=== PATIENT | female | born 1980 | race Caucasian/White ===

== ENCOUNTER 2017-05-13 14:26 | Inpatient (IN) | payer OTHER ==
[~2017-05-13] VITALS: Ht 154.9 cm; Wt 69.9 kg
[~2017-05-13 14:26] MED LIST: AMBIEN5 MG PO; AMITRIPTYLINE H25 M2 PO; AMITRIPTYLINE H75 M1 PO; AMITRIPTYLINE100 MG PO; CALCIUM; CIPROFLOXACIN500 M1 PO; ESTRACE0.5 MG; ESTROGEN; FLAGYL500 MG PO; FLEXERIL PO; HYDROCHLOROTH12.5 MG; HYDROCODONE-AP1 EAC6 PO; HYDROXYZINE HCL25 M2 PO; IBUPROFEN 800800 M1 PO; LEXAPRO 10 MG T10 M1; LISINOPRIL5 MG PO; MEDROLDOSEPACK PO; MENEST2.5 MG PO; MOBIC15 MG PO; NABUMETONE 750750 M1 PO; NEURONTIN300 MG PO; NEURONTIN600 MG PO; NORCO 5-325 TA1 EACH PO; NORVASC; ONDANSETRON HCL4 M2 PO; PERCOCET 5-3251 EACH PO; PHENERGAN 25 MG25 MG PO; PHENERGAN50 MG RC; PRINIVIL10 MG PO; PROMETHAZINE12.5 M1 PO; PROZAC40 MG; STOOL SOFTENER50 MG PO; SYNTHROID112 MCG PO; TRAMADOL 50 MG50 MG PO; VENLAFAXIN75 MG/1 T2 PO; WELLBUTRIN 75 M75 M1; XANAX 0.5 MG0.5 MG PO; ZOFRAN ODT4 MG PO; ZOFRAN4 MG PO
[2017-05-13 14:35] VITALS: BP 167/119
[2017-05-13] MEDS ORDERED: SYNTHROID100 MCG PO (14:40)
[2017-05-13] MEDS ORDERED: NEURONTIN600 MG PO (14:40)
[2017-05-13] MEDS ORDERED: AMITRIPTYLINE100 MG PO (14:40)
[2017-05-13] MEDS ORDERED: ZOFRAN ODT4 MG PO (14:40)
[2017-05-13 14:57] LABS: ABSOLUTE LYMPHOCYTES 1.1 thou/uL (0.8-5.3); ABSOLUTE MONOCYTES 0.4 thou/uL (0.0-1.2); ABSOLUTE NEUTROPHILS 3.1 thou/uL (1.6-8.1); BASOPHILS 0.4 %; EOSINOPHILS 0.9 %; HEMOGLOBIN 12.2 gm/dL (12.0-15.0); LYMPHOCYTES 24.5 %; MCH 28.3 pg (26.0-34.0); MCHC 33.1 g/dL (28.0-37.0); MCV 85.5 fL (80.0-100.0); MPV 7.7 fl. (7.2-11.1); NUCLEATED RBCS 0 /100WBC; PLATELET COUNT* 328 thou/uL (150-400); POLYS 66.2 %; RBC 4.32 mil/uL (4.20-5.00); RDW-CV 14.4 % (10.5-14.5); WBC 4.7 thou/uL (4.0-11.0)
[2017-05-13 15:04] LABS: ANION GAP 7 mmol/L (7-16); BUN 8 mg/dL (7-18); CALCIUM 8.7 mg/dL (8.5-10.1); CHLORIDE 108 mmol/L (98-107); CO2 27 mmol/L (21-32); CREATININE 0.8 mg/dL (0.6-1.3); GLUCOSE 96 mg/dL (70-99); SODIUM 142 mmol/L (136-145)
[2017-05-13 15:05] LABS: APTT 26.1 Seconds (25.0-31.3); PROTIME 9.4 Seconds (9.20-11.50)
[2017-05-13 15:15] LABS: ACETAMINOPHEN < 2 ug/mL (10-30); ALCOHOL < 10 mg/dL (<10)
[2017-05-13 15:16] LABS: URINE BILIRUBIN NEGATIVE (Negative); URINE BLOOD TRACE (Negative); URINE CLARITY CLEAR; URINE COLOR STRAW; URINE GLUCOSE-RANDOM NEGATIVE (Negative); URINE KETONES NEGATIVE (Negative); URINE LEUKOCYTES-REFLEX 1+ (Negative); URINE NITRITE-REFLEX NEGATIVE (Negative); URINE PROTEIN NEGATIVE (Negative); URINE UROBILINOGEN 0.2 E.U./dl (0.2-1.0)
[2017-05-13 15:20] LABS: ALBUMIN 3.3 g/dL (3.4-5.0); ALKALINE PHOSPHATASE 122 U/L (46-116); CK-MB MASS 1.2 ng/mL (<0.5-3.6); NT-PRO BRAIN NAT PEPTIDE 502 pg/mL (<300); SGOT 24 U/L (15-37); SGPT 25 U/L (30-65); TOTAL BILIRUBIN 0.2 mg/dL (<0.1-1.0); TOTAL PROTEIN 7.2 g/dL (6.4-8.2); TROPONIN-I LEVEL <0.06 ng/mL (<0.06)
[2017-05-13 15:23] LABS: SQUAMOUS 4-10 Moderate /LPF (0-3)
[2017-05-13 15:24] LABS: AMP/METHAMP Negative (Negative); BACTERIA-REFLEX None Seen /HPF (None Seen); BARBITURATES Negative (Negative); BENZODIAZEPINES Negative (Negative); CASTS None Seen /LPF (None Seen); COCAINE Negative (Negative); CRYSTALS None Seen /LPF (None Seen); METHADONE Negative (Negative); MUCUS 0-3 Light strn/LPF (None Seen); OPIATES POSITIVE (Negative); PCP Negative (Negative); THC Negative (Negative); URINE RBC 0-2 Rare /HPF (0-2); URINE WBC-REFLEX 0-5 Rare /HPF (0-5)
[2017-05-13 19:33] VITALS: BP 143/87
[2017-05-13 19:41] VITALS: BP 150/90
[2017-05-13 22:00] VITALS: BP 145/87
[2017-05-14] VITALS: BP 142/90
[2017-05-14 02:00] VITALS: BP 147/89
[2017-05-14 04:00] VITALS: BP 169/98
[2017-05-14 04:06] LABS: HEMATOCRIT 34.2 % (37.0-47.0); HEMOGLOBIN 11.6 gm/dL (12.0-15.0); MCH 28.9 pg (26.0-34.0); MCHC 33.8 g/dL (28.0-37.0); MCV 85.5 fL (80.0-100.0); RDW-CV 14.3 % (10.5-14.5); WBC 4.2 thou/uL (4.0-11.0)
[2017-05-14 04:48] LABS: ALBUMIN 2.8 g/dL (3.4-5.0); CALCIUM 8.2 mg/dL (8.5-10.1); CREATININE 0.7 mg/dL (0.6-1.3); MAGNESIUM 1.9 mg/dL (1.8-2.4); POTASSIUM 3.9 mmol/L (3.5-5.1); TOTAL BILIRUBIN 0.2 mg/dL (<0.1-1.0); TOTAL PROTEIN 5.8 g/dL (6.4-8.2)
[2017-05-14 06:00] VITALS: BP 152/99
[2017-05-14 08:10] VITALS: BP 157/94
[2017-05-14] MEDS ORDERED: LISINOPRIL20 MG PO (08:23)
[2017-05-14 08:43] LABS: INFLUENZA A ANTIGEN None Detected (None Detect); INFLUENZA B ANTIGEN None Detected (None Detect)
[2017-05-14 09:20] VITALS: BP 157/94
[2017-05-14] MEDS ORDERED: ESTRADIOL 1 MG T1 M1 PO (09:47)
--- NOTE | 2017-05-14 17:15 | EKG ---
[place] [address] ELECTROCARDIOGRAM REPORT Name: RUSSELL CEJA Room: [address] IN M.R.#: [id number] Admission: 05/13/17 Attend Phys: Amber Redd MD Discharge: 05/14/17 Date of : 80 Report #: [id number] THIS REPORT FOR: //name// [facility] ED Test Date: 2017-05-13 Test Time: 14:35:17 Pat Name: RUSSELL CEJA Department: Room: [facility] Gender: F Seasoning Mixer: Ben VARMA : 1980 Requested By: Adrián Fisher Order Number: [id number] MD: Cuong Forrest Measurements Intervals [place] Rate: 119 P: 64 PA: 160 QRS: 11 QRSD: 89 T: 30 QT: 327 QTc: 461 Interpretive Statements Sinus tachycardia No previous ECG available for comparison Electronically Signed On 05-14-2017 17:14:59 DRIVER MANAGER by Cuong Forrest [email or web address] <ELECTRONICALLY SIGNED> By: Cuong Forrest MD, [facility] 05/14/17 1714 1435 1435 Cuong Forrest MD, FACC /EPI
== END 2017-05-14 10:10 | disposition home or self-care (01) | DRG 917 ==
LOC: M.ERS 14:26 → M.TBA-ER 17:37 → M.ICU 19:34
PROVIDERS: Emergency Medicine Emergency Medical Services; ADMIT Internal Medicine
DX: T42.6X1A Poisoning by other antiepileptic and sedative-hypnotic drugs, accidental (unintentional), initial encounter (principal); G92 Toxic encephalopathy; J06.9 Acute upper respiratory infection, unspecified; B34.9 Viral infection, unspecified; I10 Essential (primary) hypertension; Y92.89 Other specified places as the place of occurrence of the external cause; Z88.6 Allergy status to analgesic agent; Z88.2 Allergy status to sulfonamides; Z87.442 Personal history of urinary calculi; Z90.49 Acquired absence of other specified parts of digestive tract; Z90.710 Acquired absence of both cervix and uterus; Z28.21 Immunization not carried out because of patient refusal

== ENCOUNTER 2018-02-03 09:32 | Emergency (ER) | payer OTHER ==
[~2018-02-03] VITALS: Ht 154.9 cm; Wt 64.0 kg
[~2018-02-03 09:32] MED LIST changes: +ESTRADIOL 1 MG T1 M1 PO; +LISINOPRIL20 MG PO; +SYNTHROID100 MCG PO
[2018-02-03] MEDS ORDERED: PREMARIN0.625 MG PO (09:46)
[2018-02-03] MEDS ORDERED: ATENOLOL 50MG T50 M1 PO (09:47)
[2018-02-03] MEDS ORDERED: HYZAAR 100-12.1 EACH PO (09:47)
[2018-02-03] MEDS ORDERED: SYNTHROID112 MC1 PO (09:47)
[2018-02-03] MEDS ORDERED: CATAPRESS3 TRANSDERM (09:52)
[2018-02-03 09:56] LABS: ABSOLUTE EOSINOPHILS 0.1 thou/uL (0.0-0.7); ABSOLUTE LYMPHOCYTES 1.6 thou/uL (0.8-5.3); ABSOLUTE MONOCYTES 0.3 thou/uL (0.0-1.2); ABSOLUTE NEUTROPHILS 2.5 thou/uL (1.6-8.1); BASOPHILS 0.9 %; EOSINOPHILS 2.6 %; HEMOGLOBIN 13.7 gm/dL (12.0-15.0); LYMPHOCYTES 34.4 %; MCHC 33.4 g/dL (28.0-37.0); MCV 83.8 fL (80.0-100.0); MONOCYTES 6.8 %; MPV 8.3 fl. (7.2-11.1); NUCLEATED RBCS 0 /100WBC; PLATELET COUNT* 320 thou/uL (150-400); POLYS 55.3 %; WBC 4.5 thou/uL (4.0-11.0)
[2018-02-03 10:18] LABS: ANION GAP 8 mmol/L (7-16); BUN 11 mg/dL (7-18); CALCIUM 9.1 mg/dL (8.5-10.1); CHLORIDE 101 mmol/L (98-107); CO2 29 mmol/L (21-32); CREATININE 0.9 mg/dL (0.6-1.3); GLUCOSE 67 mg/dL (70-99); POTASSIUM 3.6 mmol/L (3.5-5.1); SODIUM 138 mmol/L (136-145)
[2018-02-03 10:26] LABS: ALBUMIN 3.7 g/dL (3.4-5.0); ALKALINE PHOSPHATASE 166 U/L (46-116); SGOT 18 U/L (15-37); SGPT 16 U/L (30-65); TOTAL BILIRUBIN 0.2 mg/dL (<0.1-1.0); TOTAL PROTEIN 7.8 g/dL (6.4-8.2); TROPONIN-I LEVEL <0.06 ng/mL (<0.06)
[2018-02-03 11:06] LABS: URINE BILIRUBIN NEGATIVE (Negative); URINE BLOOD TRACE (Negative); URINE CLARITY CLEAR; URINE COLOR YELLOW; URINE GLUCOSE-RANDOM NEGATIVE (Negative); URINE KETONES NEGATIVE (Negative); URINE LEUKOCYTES-REFLEX 1+ (Negative); URINE NITRITE-REFLEX NEGATIVE (Negative); URINE PROTEIN NEGATIVE (Negative); URINE UROBILINOGEN 0.2 E.U./dl (0.2-1.0)
[2018-02-03 11:18] LABS: BACTERIA-REFLEX 1-9 Few /HPF (None Seen); CASTS None Seen /LPF (None Seen); CRYSTALS None Seen /LPF (None Seen); SQUAMOUS 0-3 Few /LPF (0-3); URINE RBC None Seen /HPF (0-2); URINE WBC-REFLEX 0-5 Rare /HPF (0-5)
[2018-02-03 12:10] VITALS: BP 138/82
--- NOTE | 2018-02-03 16:38 | EKG ---
[place] [address] ELECTROCARDIOGRAM REPORT Name: CEJA,RUSSELL Marycarmen Room: [facility]#: [id number] Admission: 02/03/18 Attend Phys: Discharge: 02/03/18 Date of : [birth year] Report #: [id number] THIS REPORT FOR: //name// [facility] ED Test Date: 2018-02-03 Test Time: 09:57:24 Pat Name: RUSSELL CEJA Department: Room: Gender: F Green [place] Man: CORY : 1980 Requested By: Adrián Fisher Order Number: [id number] MD: Chance Waters Measurements Intervals [place] Rate: 88 P: 45 [place]: 138 QRS: 30 QRSD: 84 T: 23 QT: 374 QTc: 453 Interpretive Statements Sinus rhythm Abnormal R-wave progression, early transition Compared to ECG 05/13/2017 14:35:17 Sinus tachycardia no longer present Electronically Signed On 02-03-2018 16:38:11 DECAL DECORATOR by Chance Waters [email or web address] <ELECTRONICALLY SIGNED> By: Chance Waters MD, [facility] 02/03/18 1638 0957 Chance Waters MD, FACC /EPI
== END 2018-02-03 12:10 | disposition home or self-care (01) ==
LOC: M.ERS 09:32
PROVIDERS: Emergency Medicine Emergency Medical Services
DX: I10 Essential (primary) hypertension (principal); Z88.2 Allergy status to sulfonamides; Z88.6 Allergy status to analgesic agent; Z87.442 Personal history of urinary calculi; Z90.710 Acquired absence of both cervix and uterus; Z90.49 Acquired absence of other specified parts of digestive tract

== ENCOUNTER 2018-03-14 12:41 | Emergency (ER) | payer OTHER ==
[~2018-03-14] VITALS: Ht 154.9 cm; Wt 59.0 kg
[~2018-03-14 12:41] MED LIST changes: +ATENOLOL 50MG T50 M1 PO; +CATAPRESS3 TRANSDERM; +HYZAAR 100-12.1 EACH PO; +PREMARIN0.625 MG PO; +SYNTHROID112 MC1 PO
[2018-03-14] MEDS ORDERED: NORVASC5 MG PO (12:51)
[2018-03-14] MEDS ORDERED: COZAAR 25 MG TA25 M1 PO (12:51)
[2018-03-14] MEDS ORDERED: COREG12.5 MG PO (12:51)
[2018-03-14 13:55] LABS: ABSOLUTE EOSINOPHILS 0.1 thou/uL (0.0-0.7); ABSOLUTE LYMPHOCYTES 1.3 thou/uL (0.8-5.3); ABSOLUTE MONOCYTES 0.3 thou/uL (0.0-1.2); ABSOLUTE NEUTROPHILS 2.2 thou/uL (1.6-8.1); BASOPHILS 1.2 %; LYMPHOCYTES 33.9 %; MCH 28.2 pg (26.0-34.0); MCHC 33.4 g/dL (28.0-37.0); MCV 84.2 fL (80.0-100.0); MONOCYTES 6.8 %; MPV 8.6 fl. (7.2-11.1); NUCLEATED RBCS 0 /100WBC; PLATELET COUNT* 270 thou/uL (150-400); POLYS 55.1 %; RBC 4.27 mil/uL (4.20-5.00); RDW-CV 14.3 % (10.5-14.5); WBC 3.9 thou/uL (4.0-11.0)
[2018-03-14 14:03] LABS: CALCIUM 8.5 mg/dL (8.5-10.1); CREATININE 0.8 mg/dL (0.6-1.3); POTASSIUM 3.8 mmol/L (3.5-5.1)
[2018-03-14 14:06] LABS: APTT 26.3 Seconds (25.0-31.3); INR 0.9; PROTIME 9.7 Seconds (9.20-11.50)
[2018-03-14 14:08] LABS: ALBUMIN 3.2 g/dL (3.4-5.0); TOTAL BILIRUBIN 0.2 mg/dL (<0.1-1.0); TOTAL PROTEIN 6.6 g/dL (6.4-8.2)
[2018-03-14] MEDS ORDERED: PREDNISONE 20 M20 M1 PO (14:15)
[2018-03-14] MEDS ORDERED: KEFLEX500 M1 PO (14:15)
[2018-03-14 14:29] VITALS: BP 143/98
--- NOTE | 2018-03-15 11:08 | EKG ---
[place] [address] ELECTROCARDIOGRAM REPORT Name: RUSSELL CEJA Room: [facility]#: [id number] Admission: 03/14/18 Attend Phys: Discharge: 03/14/18 Date of : [birth year] Report #: [id number] THIS REPORT FOR: //name// [facility] ED Test Date: 2018-03-14 Test Time: 13:01:52 Pat Name: RUSSELL CEJA Department: Room: Gender: F Weather Stripper: : 1980 Requested By: Omari Lin Order Number: [id number] MD: Malcolm Redd Measurements Intervals [place] Rate: 89 P: 48 MD: 132 QRS: 38 QRSD: 87 T: 22 QT: 349 QTc: 425 Interpretive Statements Sinus rhythm Compared to ECG 02/03/2018 09:57:24 No significant changes Electronically Signed On 03-15-2018 11:08:44 VIRTUALIZATION CONSULTANT by Malcolm Redd [email or web address] <ELECTRONICALLY SIGNED> By: Malcolm Redd MD, [facility] 03/15/18 1108 1301 1301 Malcolm Redd MD, FACC /EPI
== END 2018-03-14 14:30 | disposition home or self-care (01) ==
LOC: M.ERS 12:41
PROVIDERS: Family Medicine
DX: R60.0 Localized edema (principal); M79.7 Fibromyalgia; I10 Essential (primary) hypertension; Z90.49 Acquired absence of other specified parts of digestive tract; Z90.710 Acquired absence of both cervix and uterus; Z88.2 Allergy status to sulfonamides; Z88.6 Allergy status to analgesic agent; Z88.8 Allergy status to other drugs, medicaments and biological substances

== ENCOUNTER 2018-07-17 10:21 | Emergency (ER) | payer OTHER ==
[~2018-07-17] VITALS: Ht 154.9 cm; Wt 54.4 kg
[~2018-07-17 10:21] MED LIST changes: +COREG12.5 MG PO; +COZAAR 25 MG TA25 M1 PO; +KEFLEX500 M1 PO; +NORVASC5 MG PO; +PREDNISONE 20 M20 M1 PO
[2018-07-17 11:28] LABS: HEMATOCRIT 43.7 % (37.0-47.0); HEMOGLOBIN 15.3 gm/dL (12.0-15.0); MCH 29.1 pg (26.0-34.0); MCHC 34.9 g/dL (28.0-37.0); MCV 83.3 fL (80.0-100.0); MPV 8.6 fl. (7.2-11.1); NUCLEATED RBCS 0 /100WBC; PLATELET COUNT* 389 thou/uL (150-400); RBC 5.25 mil/uL (4.20-5.00); RDW-CV 14.6 % (10.5-14.5)
[2018-07-17 11:41] LABS: ALBUMIN 4.2 g/dL (3.4-5.0); CALCIUM 9.6 mg/dL (8.5-10.1); CREATININE 1.1 mg/dL (0.6-1.3); POTASSIUM 3.6 mmol/L (3.5-5.1); TOTAL BILIRUBIN 0.4 mg/dL (<0.1-1.0); TOTAL PROTEIN 8.3 g/dL (6.4-8.2)
[2018-07-17] MEDS ORDERED: PREMARIN0.45 MG PO (12:16)
[2018-07-17 12:19] LABS: URINE BILIRUBIN NEGATIVE (Negative); URINE BLOOD 3+ (Negative); URINE CLARITY CLEAR; URINE COLOR YELLOW; URINE GLUCOSE-RANDOM NEGATIVE (Negative); URINE KETONES 1+ (Negative); URINE LEUKOCYTES-REFLEX TRACE (Negative); URINE NITRITE-REFLEX NEGATIVE (Negative); URINE PROTEIN TRACE (Negative); URINE SPECIFIC GRAVITY <= 1.005 (1.005-1.030); URINE UROBILINOGEN 0.2 E.U./dl (0.2-1.0)
[2018-07-17 12:24] LABS: ABSOLUTE LYMPHOCYTES 0.8 thou/uL (0.8-5.3); ABSOLUTE NEUTROPHILS 11.2 thou/uL (1.6-8.1); PLATELET ESTIMATE ADEQUATE
[2018-07-17 12:26] LABS: AMP/METHAMP Negative (Negative); BARBITURATES Negative (Negative); BENZODIAZEPINES Negative (Negative); COCAINE Negative (Negative); METHADONE Negative (Negative); OPIATES Negative (Negative); PCP Negative (Negative); THC Negative (Negative)
[2018-07-17 12:32] LABS: SQUAMOUS >10 Many /LPF (0-3)
[2018-07-17 12:33] LABS: URINE RBC >20 Many /HPF (0-2); URINE WBC-REFLEX 0-5 Rare /HPF (0-5)
[2018-07-17 12:34] LABS: BACTERIA-REFLEX 1-9 Few /HPF (None Seen); CASTS None Seen /LPF (None Seen); CRYSTALS None Seen /LPF (None Seen); MUCUS 4-6 Moderate strn/LPF (None Seen)
[2018-07-17] MEDS ORDERED: CITRATE OF MAG296 ML PO (12:49)
[2018-07-17] MEDS ORDERED: ZOFRAN ODT4 MG PO (12:49)
[2018-07-17] MEDS ORDERED: GOLYTELY PACKE1 EACH PO (12:49)
[2018-07-17] MEDS ORDERED: BACTRIM DS TAB1 EACH PO (12:50)
[2018-07-17] MEDS ORDERED: MACROBID 100 M100 M1 PO (13:13)
[2018-07-17 13:24] VITALS: BP 124/74
--- NOTE | 2018-07-18 12:06 | EKG ---
[place] [address] ELECTROCARDIOGRAM REPORT Name: RUSSELL CEJA Room: [facility]#: [id number] Admission: 07/17/18 Attend Phys: Discharge: 07/17/18 Date of : [birth year] Report #: [id number] THIS REPORT FOR: //name// [facility] ED Test Date: 2018-07-17 Test Time: 11:34:28 Pat Name: RUSSELL CEJA Department: Room: Gender: F Radon Inspector: GLENIS : 1980 Requested By: Sherry Pacheco Order Number: [id number] MD: Cuong Forrest Measurements Intervals [place] Rate: 67 P: 61 [place]: 141 QRS: 33 QRSD: 133 T: 251 QT: 554 QTc: 585 Interpretive Statements Sinus rhythm T wave inversion anterior leads, consider ischemia Compared to ECG 03/14/2018 13:01:52 T wave inversion now present Electronically Signed On 07-18-2018 12:06:16 CDT by Cuong Forrest [email or web address] <ELECTRONICALLY SIGNED> By: Cuong Forrest MD, [facility] 07/18/18 1206 1134 1134 Cuong Forrest MD, [facility] /EPI
== END 2018-07-17 13:22 | disposition home or self-care (01) ==
LOC: M.ERS 10:21
PROVIDERS: Physician Assistant
DX: K59.00 Constipation, unspecified (principal); N39.0 Urinary tract infection, site not specified; M79.7 Fibromyalgia; I10 Essential (primary) hypertension; Z88.8 Allergy status to other drugs, medicaments and biological substances; Z88.6 Allergy status to analgesic agent; Z88.2 Allergy status to sulfonamides; Z87.442 Personal history of urinary calculi; Z90.49 Acquired absence of other specified parts of digestive tract; Z90.710 Acquired absence of both cervix and uterus

== ENCOUNTER 2018-07-19 16:58 | Inpatient (IN) | payer OTHER ==
[~2018-07-19] VITALS: Ht 154.9 cm; Wt 54.0 kg
--- NOTE | ~2018-07-19 | PROC ---
[address] [address] PROCEDURE REPORT Name: RUSSELL CEJA Room: [address] IN M.R.#: [id number] Admission: 07/19/18 Attend Phys: Harrison Borja MD Discharge: 07/22/18 Date of : [birth year] Report #: [id number] THIS REPORT FOR: //name// For GI report, please see the Provation report in Perceptive 7. By: [facility]6Medical Records Staff JENNIFER /PIERRE
[~2018-07-19 16:58] MED LIST changes: +BACTRIM DS TAB1 EACH PO; +CITRATE OF MAG296 ML PO; +GOLYTELY PACKE1 EACH PO; +MACROBID 100 M100 M1 PO; +PREMARIN0.45 MG PO
[2018-07-19 17:08] VITALS: BP 147/101
[2018-07-19 17:52] LABS: ABSOLUTE EOSINOPHILS 0.1 thou/uL (0.0-0.7); ABSOLUTE LYMPHOCYTES 2.2 thou/uL (0.8-5.3); ABSOLUTE MONOCYTES 0.5 thou/uL (0.0-1.2); BASOPHILS 0.3 %; EOSINOPHILS 0.7 %; HEMATOCRIT 43.1 % (37.0-47.0); HEMOGLOBIN 14.3 gm/dL (12.0-15.0); LYMPHOCYTES 22.6 %; MCH 27.9 pg (26.0-34.0); MCHC 33.2 g/dL (28.0-37.0); MCV 83.8 fL (80.0-100.0); MONOCYTES 5.5 %; MPV 8.6 fl. (7.2-11.1); NUCLEATED RBCS 0 /100WBC; PLATELET COUNT* 359 thou/uL (150-400); POLYS 70.9 %; RBC 5.14 mil/uL (4.20-5.00); RDW-CV 14.6 % (10.5-14.5); WBC 9.8 thou/uL (4.0-11.0)
[2018-07-19 18:10] LABS: ALBUMIN 4.1 g/dL (3.4-5.0); CALCIUM 9.2 mg/dL (8.5-10.1); CREATININE 1.2 mg/dL (0.6-1.3); TOTAL BILIRUBIN 0.3 mg/dL (<0.1-1.0); TOTAL PROTEIN 7.8 g/dL (6.4-8.2)
[2018-07-19 19:20] LABS: URINE BILIRUBIN NEGATIVE (Negative); URINE BLOOD 2+ (Negative); URINE COLOR YELLOW; URINE GLUCOSE-RANDOM NEGATIVE (Negative); URINE KETONES NEGATIVE (Negative); URINE LEUKOCYTES-REFLEX TRACE (Negative); URINE NITRITE-REFLEX NEGATIVE (Negative); URINE PROTEIN NEGATIVE (Negative); URINE UROBILINOGEN 0.2 E.U./dl (0.2-1.0)
[2018-07-19 19:21] LABS: URINE CLARITY HAZY
[2018-07-19 19:28] LABS: SQUAMOUS >10 Many /LPF (0-3)
[2018-07-19 19:29] LABS: BACTERIA-REFLEX None Seen /HPF (None Seen); CASTS None Seen /LPF (None Seen); CRYSTALS None Seen /LPF (None Seen); URINE RBC 3-10 Few /HPF (0-2); URINE WBC-REFLEX 0-5 Rare /HPF (0-5)
[2018-07-19 21:23] VITALS: BP 144/93
[2018-07-20 05:04] LABS: ABSOLUTE BASOPHILS 0.1 thou/uL (0.0-0.2); ABSOLUTE EOSINOPHILS 0.1 thou/uL (0.0-0.7); ABSOLUTE LYMPHOCYTES 2.6 thou/uL (0.8-5.3); ABSOLUTE MONOCYTES 0.4 thou/uL (0.0-1.2); ABSOLUTE NEUTROPHILS 3.2 thou/uL (1.6-8.1); BASOPHILS 0.8 %; HEMATOCRIT 37.1 % (37.0-47.0); LYMPHOCYTES 40.3 %; MCH 27.5 pg (26.0-34.0); MCHC 32.7 g/dL (28.0-37.0); MCV 84.1 fL (80.0-100.0); MONOCYTES 6.6 %; MPV 8.9 fl. (7.2-11.1); NUCLEATED RBCS 0 /100WBC; POLYS 50.3 %; RBC 4.41 mil/uL (4.20-5.00); RDW-CV 14.9 % (10.5-14.5); WBC 6.4 thou/uL (4.0-11.0)
[2018-07-20 05:19] LABS: APTT 28.7 Seconds (25.0-31.3)
[2018-07-20 05:34] LABS: CREATININE 0.9 mg/dL (0.6-1.3); MAGNESIUM 2.2 mg/dL (1.8-2.4); POTASSIUM 3.5 mmol/L (3.5-5.1)
[2018-07-20 05:39] LABS: HEMOGLOBIN 12.1 gm/dL (12.0-15.0); PLATELET COUNT* 281 thou/uL (150-400)
[2018-07-20 08:00] VITALS: BP 156/110
[2018-07-20 17:19] VITALS: BP 144/97
[2018-07-20 20:00] VITALS: BP 122/86
[2018-07-21 05:13] LABS: CALCIUM 8.8 mg/dL (8.5-10.1); CREATININE 0.9 mg/dL (0.6-1.3); MAGNESIUM 2.7 mg/dL (1.8-2.4)
[2018-07-21 09:00] VITALS: BP 143/97
--- NOTE | 2018-07-21 11:29 | CON ---
[address] [address] CONSULTATION Name: RUSSELL CEJA Room: [address] IN .R.#: [id number] Admission: 07/19/18 Attend Phys: Harrison Borja MD Discharge: Date of : [birth year] Report #: [id number] THIS REPORT FOR: //name// CC: Galdino Borja DICTATED BY: Madie Carlisle [facility] DATE OF SERVICE: 07/20/2018 Please note at the time of this dictation, the patient was seen and physically examined by myself. REASON FOR CONSULTATION: Abdominal pain, constipation, rectal pain and blood noted in the stool. HISTORY OF PRESENT ILLNESS: This is a 38-year-old female who presented to the Emergency Room over the weekend initially for some lower abdominal pain and rectal pain. She also had some nausea and vomiting. She was found to have a urinary tract infection and be very constipated. She was given GoLYTELY as well as magnesium citrate and on the following later on that day after taking all of that, she did have a very large volume hard stool that she describes as being very violent with she felt a popping sensation as well as then having some rectal bleeding afterwards. The patient has a terminal clerk history dating back to 2015 after she had her bladder sling and vaginal wall reconstruction. She thinks that is when all of her constipation issues became an issue. Currently, she will only go twice a month to have a bowel movement. The patient was last seen by us in 2017 in which she had an EGD that showed some patchy erythema in the gastric and it was negative for H. pylori. She has ____ had a colonoscopy done before. She still continues to have a lot of lower abdominal pressure as well. She did state she had a colon done, but does not recall where it was done previously a couple of years ago. ALLERGIES: INCLUDE SULFA, LABETALOL AND IBUPROFEN. MEDICATIONS: From home levothyroxine, Premarin, nitrofurantoin and Zofran. PAST MEDICAL HISTORY: IBS with constipation, hypertension, fibromyalgia, chronic kidney disease, history of kidney stones, ovarian cyst in the past. She has had a stomach ulcer, colitis in 2008, hypothyroidism and rectocele. PAST SURGICAL HISTORY: Cholecystectomy, hysterectomy, exploratory lap for endometriosis with a bladder sling and vaginal wall reconstruction and a rectocele repair [place] [address] CONSULTATION Name: RUSSELL CEJA Room: [address]#: [id number] Admission: 07/19/18 Attend Phys: Harrison Borja MD Discharge: Date of : 80 Report #: [id number] FAMILY HISTORY: RA in her mother. Other family history is breast cancer on maternal and paternal side of the family. SOCIAL HISTORY: She quit smoking a couple of years ago. Rarely has any alcohol. She does use CBD oil regularly to help treat her blood pressure. REVIEW OF SYSTEMS: Twelve-point review of systems is essentially negative except what is mentioned in the HPI. PHYSICAL EXAMINATION: VITAL SIGNS: Temperature 36, pulse 68, respirations 18 and blood pressure 144/93. HEART: Regular rate and rhythm. LUNGS: Clear. ABDOMEN: Soft, positive bowel sounds in all 4 quadrants with tenderness noted in the lower quadrants. LABORATORY DATA: Hemoglobin 14.3, white count is 9.8 and platelets 359. GFR is 70. PT is 10. INR is 1. CT of the abdomen and pelvis shows chronic constipation and rectum being depressed and low density fluid in the rectum with some perirectal fat stranding noted deep in the pelvis. IMPRESSION: 1. Abdominal pain, rectal pain. 2. Rectal bleeding. 3. Nausea and vomiting. 4. Chronic constipation usually will have two BMs a month. 5. Chronic kidney disease. 6. Family history of breast cancer and mother, rheumatoid arthritis. PLAN: 1. EGD and colon tomorrow with Dr. Rodriguez 2. Prior to discharge, we will have to get a better handle of her bowel regimen. 3. Wear scopolamine patch. 4. Continue Cipro and Flagyl. 5. Further recommendations to be made once the procedure has been performed. Thank you for allowing us to participate in this patient's care. Please do not hesitate to call with any questions in regard to this consult. Agree with above assessment and plan by Madie Carlisle <ELECTRONICALLY SIGNED> By: Sanket Black MD 07/21/18 1129 1039 2317Sanket Black MD /nt
[2018-07-21 17:42] VITALS: BP 138/85
[2018-07-21 20:00] VITALS: BP 145/96
[2018-07-22 04:49] LABS: ALBUMIN 3.6 g/dL (3.4-5.0); CALCIUM 8.8 mg/dL (8.5-10.1); CREATININE 1.2 mg/dL (0.6-1.3); TOTAL BILIRUBIN 0.4 mg/dL (<0.1-1.0); TOTAL PROTEIN 7.5 g/dL (6.4-8.2)
[2018-07-22 04:51] LABS: POTASSIUM 2.9 mmol/L (3.5-5.1)
[2018-07-22 07:50] VITALS: BP 113/80
[2018-07-22 10:51] VITALS: BP 113/80
[2018-07-22] MEDS ORDERED: ONDANSETRON HCL4 M2 PO (18:02)
[2018-07-22 18:27] VITALS: BP 113/80
--- NOTE | 2018-07-23 16:06 | PATH ---
[facility] [address] [place] [address] PATHOLOGY RPT PROCEDURE Name: DULCE ARREDONDO Room: [address] IN M.R.#: [id number] Admission: 07/19/18 Date of : [birth year] Discharge: 07/22/18 Report #: [id number] Path Case #: [id number] [facility] Accession Number: [id number] . 01 Material submitted: . stomach - GASTRIC BIOPSY FOR H PYLORI . 01 Clinical history: . None provided . 02 Diagnosis: Gastric biopsy: - Mild nonspecific chronic gastritis, negative for Helicobacter pylori organisms and dysplasia. (MEGHANA:anette; 07/23/2018) . . Special stain: H. pylori immuno QMS/07/23/2018 . 02 Electronically signed: . Pedro Benavides MD, Pathologist NPI- [id number] . 01 Gross description: . Received in formalin labeled "Dulce Arredondo, gastric biopsy, H. pylori," are 3 segments of thornton soft tissue measuring 0.7 x 0.6 x 0.2 cm in aggregate dimensions and ranging from 0.3 to 0.4 cm in maximum dimension. The specimen is submitted entirely in cassette A1. (TSD; 07/22/2018) TOB/TOB . 02 Pathologist provided ICD-10: K29.50 . 02 CPT . 093072, F14161 Specimen Comment: A courtesy copy of this report has been sent to Specimen Comment: [phone], , . Specimen Comment: Report sent to ,DR BRIAN / DR FREY Performed at: [address], [place] [address] MD Ron Reagan MD Phone: [phone] Performed at: 02 [facility] [address], [place], [place] [address] MD Pedro Benavides MD Phone: [phone]
== END 2018-07-22 18:50 | disposition home or self-care (01) | DRG 377 ==
LOC: M.ERS 16:58 → M.3W 20:11 → M.TBA-ER 20:11 → M.3W 21:47
PROVIDERS: Nurse Practitioner Family; ADMIT Family Medicine
PROC: 0DB68ZX Excision of Stomach, Via Natural or Artificial Opening Endoscopic, Diagnostic (ICD-10-PCS; principal; 2018-07-22)
PROC: 0DJD8ZZ Inspection of Lower Intestinal Tract, Via Natural or Artificial Opening Endoscopic (ICD-10-PCS; 2018-07-22)
DX: K92.1 Melena (principal); N17.0 Acute kidney failure with tubular necrosis; K58.1 Irritable bowel syndrome with constipation; K62.89 Other specified diseases of anus and rectum; E03.9 Hypothyroidism, unspecified; N18.2 Chronic kidney disease, stage 2 (mild); M79.7 Fibromyalgia; G43.909 Migraine, unspecified, not intractable, without status migrainosus; K64.9 Unspecified hemorrhoids; I12.9 Hypertensive chronic kidney disease with stage 1 through stage 4 chronic kidney disease, or unspecified chronic kidney disease; Z87.442 Personal history of urinary calculi; Z90.49 Acquired absence of other specified parts of digestive tract; Z90.710 Acquired absence of both cervix and uterus; Z88.6 Allergy status to analgesic agent; Z88.2 Allergy status to sulfonamides; Z88.8 Allergy status to other drugs, medicaments and biological substances; Z80.3 Family history of malignant neoplasm of breast; Z82.61 Family history of arthritis; Z87.891 Personal history of nicotine dependence; Z79.899 Other long term (current) drug therapy

== ENCOUNTER 2019-06-03 16:56 | Emergency (ER) | payer OTHER ==
[~2019-06-03] VITALS: Ht 154.9 cm; Wt 65.8 kg
[2019-06-03] MEDS ORDERED: SPIRONOLACTONE50 MG PO (17:08)
[2019-06-03] MEDS ORDERED: HYDRALAZINE 2525 MG PO (17:08)
[2019-06-03] MEDS ORDERED: CARVEDILOL12.5 MG PO (17:09)
[2019-06-03 18:07] LABS: ABSOLUTE BASOPHILS 0.1 thou/uL (0.0-0.2); ABSOLUTE EOSINOPHILS 0.2 thou/uL (0.0-0.7); ABSOLUTE LYMPHOCYTES 2.9 thou/uL (0.8-5.3); ABSOLUTE MONOCYTES 0.4 thou/uL (0.0-1.2); ABSOLUTE NEUTROPHILS 3.2 thou/uL (1.6-8.1); BASOPHILS 0.8 %; EOSINOPHILS 3.1 %; HEMATOCRIT 41.2 % (37.0-47.0); HEMOGLOBIN 13.5 gm/dL (12.0-15.0); LYMPHOCYTES 42.7 %; MCH 26.8 pg (26.0-34.0); MCHC 32.8 g/dL (28.0-37.0); MCV 81.7 fL (80.0-100.0); MONOCYTES 6.2 %; MPV 8.4 fl. (7.2-11.1); NUCLEATED RBCS 0 /100WBC; PLATELET COUNT* 331 thou/uL (150-400); POLYS 47.2 %; RBC 5.05 mil/uL (4.20-5.00); RDW-CV 16.7 % (10.5-14.5); WBC 6.8 thou/uL (4.0-11.0)
[2019-06-03 18:23] LABS: CREATININE 0.8 mg/dL (0.6-1.3)
[2019-06-03 18:36] LABS: APTT 27.5 Seconds (25.0-31.3); CK-MB MASS 4.9 ng/mL (<0.5-3.6); MAGNESIUM 1.9 mg/dL (1.8-2.4); PROTIME 9.9 Seconds (9.20-11.50); TOTAL BILIRUBIN 0.2 mg/dL (<0.1-1.0); TOTAL PROTEIN 7.8 g/dL (6.4-8.2)
[2019-06-03] MEDS ORDERED: ACIPHEX 20 MG T20 MG PO (18:58)
[2019-06-03 19:06] VITALS: BP 168/115
--- NOTE | 2019-06-04 12:58 | EKG ---
[place] [address] ELECTROCARDIOGRAM REPORT Name: BRENNARUSSELL MARIA ISABEL Room: [facility]#: [id number] Admission: 06/03/19 Attend Phys: Discharge: 06/03/19 Date of : [birth year] Date of Service: 06/03/19 1727 Report #: [id number] THIS REPORT FOR: //name// [facility] ED Test Date: 2019-06-03 Test Time: 17:27:05 Pat Name: RUSSELL CEJA Department: Room: Gender: Camera Person: : 1980 Requested By: Mandeep Alex Order Number: [id number] MD: Chance Waters Measurements Intervals [place] Rate: 83 P: 53 [place]: 138 QRS: 31 QRSD: 88 T: 10 QT: 381 QTc: 448 Interpretive Statements Sinus rhythm Borderline T abnormalities, anterior leads Compared to ECG 07/17/2018 11:34:28 T-wave abnormality still present Electronically Signed On 06-04-2019 12:57:08 TECHNOLOGY TEACHER by Chance Waters [email or web address] <ELECTRONICALLY SIGNED> By: Chance Waters MD, [facility] 06/04/19 1257 1727 172 Chance Waters MD, [facility] /EPI
--- NOTE | 2019-06-06 16:22 | EKG ---
[place] [address] ELECTROCARDIOGRAM REPORT Name: RUSSELL CEJA Room: [facility]#: [id number] Admission: 06/03/19 Attend Phys: Discharge: 06/03/19 Date of : [birth year] Date of Service: 06/03/19 1700 Report #: [id number] THIS REPORT FOR: //name// [facility] ED Test Date: 2019-06-03 Test Time: 17:00:10 Pat Name: RUSSELL CEJA Department: Room: Gender: F Hospice Clinical Manager: POLLY : 1980 Requested By: Mandeep Alex Order Number: [id number] MD: Cuong Forrest Measurements Intervals [place] Rate: 83 P: 67 [place]: 126 QRS: 43 QRSD: 98 T: 27 QT: 380 QTc: 447 Interpretive Statements Sinus rhythm Atrial premature complex Compared to ECG 07/17/2018 11:34:28 Atrial premature complex(es) now present T-wave abnormality no longer present Possible ischemia no longer present Electronically Signed On 06-06-2019 16:21:22 CDT by Cuong Forrest [email or web address] <ELECTRONICALLY SIGNED> By: Cuong Forrest MD, [facility]ACC 06/06/19 1621 1700 1700 Cuong Forrest MD, [facility] /EPI
== END 2019-06-03 19:09 | disposition home or self-care (01) ==
LOC: M.ERS 16:56
PROVIDERS: Emergency Medicine
DX: R07.89 Other chest pain (principal); M79.7 Fibromyalgia; Z87.442 Personal history of urinary calculi; Z90.49 Acquired absence of other specified parts of digestive tract; Z87.891 Personal history of nicotine dependence; Z88.2 Allergy status to sulfonamides; Z88.8 Allergy status to other drugs, medicaments and biological substances

== ENCOUNTER 2019-09-23 14:39 | Inpatient (IN) | payer OTHER ==
[~2019-09-23] VITALS: Ht 154.9 cm; Wt 70.3 kg
--- NOTE | ~2019-09-23 | CON ---
[facility] [address] [place] [address] CONSULTATION Name: RUSSELL CEJA Room: [address] IN M.R.#: [id number] Admission: 09/23/19 Attend Phys: Steven Martin Discharge: Date of : 80 Report #: [id number] THIS REPORT FOR: //name// cc: Galdino Cope Brad DO ~ THIS REPORT FOR: //name// CC: Galdino Aguilera DATE OF SERVICE: 09/27/2019 INDICATION FOR CONSULT: Abdominal pain and constipation. HISTORY OF PRESENT ILLNESS: This is a 39-year-old female who is well known to us as the patient has had recent endoscopic evaluation, which was unremarkable. The patient has chronic constipation and reports that she takes occasional MiraLax at home. She had tried Linzess in the past, but since it was causing her to have diarrhea, she discontinued. The patient reports that she ate a piece of toast a day prior to her admission. She reports that after eating the toast, she has got really sick and started vomiting. Since she had severe pain, this prompted her to come to hospital. She also takes lansoprazole 30 mg daily, which she reports that is the only PPI that works for her reflux. Since admission, the patient had a CT of abdomen and pelvis. There was initial question in reference to her dilated small bowel, which appeared that she has small-bowel obstruction. Follow up KUBs appeared normal. The patient reports that the last BM was a couple of days prior to admission. She reports that she usually has only one BM per month. Currently, she is lying comfortably in bed and reports that she can eat as she is no longer nauseous. PAST MEDICAL HISTORY: Significant for history of kidney stone, ovarian cyst, gallbladder disease status post laparoscopic cholecystectomy, fibromyalgia, hysterectomy, hypertension, GERD, colitis. ALLERGIES: SIGNIFICANT TO LABETALOL AND SULFA. MEDICATIONS: Please refer to MAR. SOCIAL HISTORY: The patient is , lives at home with her and three children. She has remote history of tobaccoism, [place] [address] CONSULTATION Name: RUSSELL CEJA Room: [address] IN [facility]#: [id number] Admission: 09/23/19 Attend Phys: Steven Martin Discharge: Date of : 80 Report #: [id number] She also denies alcohol use. FAMILY HISTORY: Noncontributory. PHYSICAL EXAMINATION: VITAL SIGNS: Reveals blood pressure of 130/89, respirations 17, pulse 60, temperature 97.8. LUNGS: Clear. CARDIOVASCULAR: Regular. ABDOMEN: Soft, mildly tender to deep palpation. Bowel sounds are positive. There is no organomegaly noted. NEUROLOGIC: The patient is alert and oriented x 3. There is no focal neurologic deficit. LABORATORY DATA: Reveal sodium of 136, potassium is 3.7, BUN is 10, creatinine 1.0, glucose 59, AST is 38, alkaline phosphatase 216, total bilirubin is 0.3. Lactic acid is 0.6. INR is 1.0. WBC is 4.7 with hemoglobin of 12.9 and platelet of 243. IMAGING: As discussed above. ASSESSMENT AND PLAN: The patient with history of chronic constipation, who presented with severe abdominal pain, nausea and vomiting, suspicious for small-bowel obstruction. Looking at her CT, she may have had ileus, which has resolved. Her most recent KUB from yesterday shows stool in the large intestine with normal small bowel. I will put her on erythromycin 250 every 6 hours during her hospitalization and also MiraLax on a routine basis. She also takes PPI, so we will put her on lansoprazole as she reports that is the only thing that works for her. I will follow up with her tomorrow and make further recommendation. By: 1515 1539Nawaf Riley MD /mary
[~2019-09-23 14:39] MED LIST changes: +ACIPHEX 20 MG T20 MG PO; +CARVEDILOL12.5 MG PO; +HYDRALAZINE 2525 MG PO; +SPIRONOLACTONE50 MG PO
[2019-09-23 14:48] VITALS: BP 162/101
[2019-09-23] MEDS ORDERED: FLOMAX0.4 MG PO (14:52)
[2019-09-23] MEDS ORDERED: PREVACID30 MG PO (14:52)
[2019-09-23] MEDS ORDERED: BUNAVAIL 4.2-01 EACH PO (14:53)
[2019-09-23 15:52] LABS: HEMATOCRIT 45.6 % (37.0-47.0); HEMOGLOBIN 14.9 gm/dL (12.0-15.0); MCH 27.1 pg (26.0-34.0); MCHC 32.8 g/dL (28.0-37.0); MCV 82.8 fL (80.0-100.0); MPV 9.3 fl. (7.2-11.1); NUCLEATED RBCS 0 /100WBC; PLATELET COUNT* 249 thou/uL (150-400); WBC 13.6 thou/uL (4.0-11.0)
[2019-09-23 16:19] LABS: ABSOLUTE LYMPHOCYTES 2.3 thou/uL (0.8-5.3); ABSOLUTE MONOCYTES 0.1 thou/uL (0.0-1.2); ABSOLUTE NEUTROPHILS 11.2 thou/uL (1.6-8.1); ANISOCYTOSIS Occasional; PLATELET ESTIMATE ADEQUATE
[2019-09-23 17:14] LABS: CALCIUM 8.8 mg/dL (8.5-10.1); CREATININE 1.2 mg/dL (0.6-1.3); POTASSIUM 3.5 mmol/L (3.5-5.1)
[2019-09-23 17:18] LABS: ALBUMIN 4.9 g/dL (3.4-5.0); TOTAL BILIRUBIN 0.3 mg/dL (<0.1-1.0); TOTAL PROTEIN 8.6 g/dL (6.4-8.2)
--- NOTE | 2019-09-23 17:29 | EKG ---
[place] [address] ELECTROCARDIOGRAM REPORT Name: BRENNARUSSELL MARIA ISABEL Room: [facility]#: [id number] Admission: 09/23/19 Attend Phys: Discharge: Date of : 80 Date of Service: 09/23/19 1448 Report #: [id number] THIS REPORT FOR: //name// [facility] ED Test Date: 2019-09-23 Test Time: 14:48:58 Pat Name: RUSSELL CEJA Department: Room: Gender: F Accounts Payable Supervisor: : 1980 Requested By: Adrián Fisher Order Number: [id number] MD: Cuong Forrest Measurements Intervals [place] Rate: 64 P: 66 ID: 170 QRS: 31 QRSD: 96 T: -31 QT: 450 QTc: 465 Interpretive Statements Sinus rhythm Nonspecific T abnormalities, diffuse leads Compared to ECG 06/03/2019 17:27:05 No significant changes Electronically Signed On 09-23-2019 17:29:19 CDT by Cuong Forrest [email or web address] <ELECTRONICALLY SIGNED> By: Cuong Forrset MD, [facility] 09/23/19 1729 1448 1448 Cuong Forrest MD, [facility] /EPI
[2019-09-23 19:00] LABS: URINE BILIRUBIN NEGATIVE (Negative); URINE BLOOD 2+ (Negative); URINE CLARITY CLEAR; URINE COLOR YELLOW; URINE GLUCOSE-RANDOM NEGATIVE (Negative); URINE KETONES NEGATIVE (Negative); URINE LEUKOCYTES-REFLEX NEGATIVE (Negative); URINE NITRITE-REFLEX NEGATIVE (Negative); URINE PROTEIN NEGATIVE (Negative); URINE SPECIFIC GRAVITY <= 1.005 (1.005-1.030); URINE UROBILINOGEN 0.2 E.U./dl (0.2-1.0)
[2019-09-23 19:10] LABS: BACTERIA-REFLEX None Seen /HPF (None Seen); CASTS None Seen /LPF (None Seen); CRYSTALS None Seen /LPF (None Seen); SQUAMOUS 0-3 Few /LPF (0-3); URINE RBC 3-10 Few /HPF (0-2); URINE WBC-REFLEX None Seen /HPF (0-5)
[2019-09-23 22:41] VITALS: BP 141/78
[2019-09-23 22:57] VITALS: BP 141/78
[2019-09-24] VITALS: BP 144/99
[2019-09-24 07:15] VITALS: BP 105/72
[2019-09-24 15:15] VITALS: BP 118/64
[2019-09-24 19:30] VITALS: BP 134/81
[2019-09-25 04:52] LABS: ABSOLUTE BASOPHILS 0.1 thou/uL (0.0-0.2); ABSOLUTE EOSINOPHILS 0.1 thou/uL (0.0-0.7); ABSOLUTE LYMPHOCYTES 2.3 thou/uL (0.8-5.3); ABSOLUTE MONOCYTES 0.2 thou/uL (0.0-1.2); ABSOLUTE NEUTROPHILS 2.3 thou/uL (1.6-8.1); BASOPHILS 1.2 %; EOSINOPHILS 2.9 %; HEMATOCRIT 38.3 % (37.0-47.0); LYMPHOCYTES 46.6 %; MCH 27.7 pg (26.0-34.0); MCHC 33.3 g/dL (28.0-37.0); MCV 83.3 fL (80.0-100.0); MONOCYTES 4.3 %; NUCLEATED RBCS 0 /100WBC; PLATELET COUNT* 215 thou/uL (150-400); RDW-CV 14.6 % (10.5-14.5)
[2019-09-25 05:02] LABS: CALCIUM 7.9 mg/dL (8.5-10.1); CREATININE 1.1 mg/dL (0.6-1.3); POTASSIUM 4.2 mmol/L (3.5-5.1)
[2019-09-25 05:12] LABS: HEMOGLOBIN 12.7 gm/dL (12.0-15.0)
[2019-09-25 08:13] VITALS: BP 114/70
[2019-09-25 19:40] VITALS: BP 123/85
[2019-09-26 05:48] LABS: ABSOLUTE BASOPHILS 0.1 thou/uL (0.0-0.2); ABSOLUTE EOSINOPHILS 0.1 thou/uL (0.0-0.7); ABSOLUTE LYMPHOCYTES 2.1 thou/uL (0.8-5.3); ABSOLUTE MONOCYTES 0.2 thou/uL (0.0-1.2); ABSOLUTE NEUTROPHILS 2.2 thou/uL (1.6-8.1); BASOPHILS 1.9 %; EOSINOPHILS 2.5 %; HEMATOCRIT 38.7 % (37.0-47.0); HEMOGLOBIN 12.9 gm/dL (12.0-15.0); LYMPHOCYTES 44.3 %; MCH 27.4 pg (26.0-34.0); MCHC 33.3 g/dL (28.0-37.0); MCV 82.2 fL (80.0-100.0); MONOCYTES 4.5 %; MPV 8.5 fl. (7.2-11.1); NUCLEATED RBCS 0 /100WBC; PLATELET COUNT* 243 thou/uL (150-400); POLYS 46.8 %; RBC 4.71 mil/uL (4.20-5.00); RDW-CV 14.4 % (10.5-14.5); WBC 4.7 thou/uL (4.0-11.0)
[2019-09-26 06:37] LABS: CALCIUM 8.3 mg/dL (8.5-10.1); POTASSIUM 3.7 mmol/L (3.5-5.1)
[2019-09-26 08:10] VITALS: BP 162/90
[2019-09-26 20:00] VITALS: BP 131/91
[2019-09-27 09:10] VITALS: BP 130/89
[2019-09-27 12:26] VITALS: BP 130/89
[2019-09-27 20:00] VITALS: BP 133/85
[2019-09-28 05:26] LABS: ABSOLUTE BASOPHILS 0.1 thou/uL (0.0-0.2); ABSOLUTE EOSINOPHILS 0.1 thou/uL (0.0-0.7); ABSOLUTE LYMPHOCYTES 2.7 thou/uL (0.8-5.3); ABSOLUTE MONOCYTES 0.2 thou/uL (0.0-1.2); ABSOLUTE NEUTROPHILS 1.3 thou/uL (1.6-8.1); BASOPHILS 2.2 %; EOSINOPHILS 2.6 %; HEMATOCRIT 38.4 % (37.0-47.0); HEMOGLOBIN 12.9 gm/dL (12.0-15.0); LYMPHOCYTES 61.5 %; MCH 27.4 pg (26.0-34.0); MCHC 33.6 g/dL (28.0-37.0); MCV 81.6 fL (80.0-100.0); MONOCYTES 4.7 %; MPV 8.3 fl. (7.2-11.1); NUCLEATED RBCS 0 /100WBC; PLATELET COUNT* 247 thou/uL (150-400); RBC 4.71 mil/uL (4.20-5.00); RDW-CV 14.5 % (10.5-14.5); WBC 4.4 thou/uL (4.0-11.0)
[2019-09-28 05:40] LABS: ALBUMIN 3.3 g/dL (3.4-5.0); CALCIUM 8.2 mg/dL (8.5-10.1); POTASSIUM 3.3 mmol/L (3.5-5.1); TOTAL BILIRUBIN 0.3 mg/dL (<0.1-1.0); TOTAL PROTEIN 6.6 g/dL (6.4-8.2)
[2019-09-28 07:42] VITALS: BP 125/82
[2019-09-28 11:30] VITALS: BP 130/89
[2019-09-28 13:12] VITALS: BP 130/89
[2019-09-28] MEDS ORDERED: ERYTHROMYCIN250 M1 PO (13:25)
[2019-09-28 13:33] VITALS: BP 130/89
[2019-09-28 14:10] VITALS: BP 130/89
== END 2019-09-28 14:45 | disposition home or self-care (01) | DRG 392 ==
LOC: M.ERS 14:39 → M.TBA-ER 18:54 → M.3W 18:54
PROVIDERS: Emergency Medicine Emergency Medical Services; Nurse Practitioner; Nurse Practitioner Family; ADMIT Internal Medicine; ATTEND Internal Medicine
DX: K59.03 Drug induced constipation (principal); E86.0 Dehydration; T50.7X5A Adverse effect of analeptics and opioid receptor antagonists, initial encounter; M79.7 Fibromyalgia; I10 Essential (primary) hypertension; K21.9 Gastro-esophageal reflux disease without esophagitis; K58.9 Irritable bowel syndrome, unspecified; N93.9 Abnormal uterine and vaginal bleeding, unspecified; F41.9 Anxiety disorder, unspecified; Z90.710 Acquired absence of both cervix and uterus; Z91.048 Other nonmedicinal substance allergy status; Z90.49 Acquired absence of other specified parts of digestive tract; Z87.442 Personal history of urinary calculi; Z79.899 Other long term (current) drug therapy; Z88.2 Allergy status to sulfonamides; Z88.8 Allergy status to other drugs, medicaments and biological substances; Y92.89 Other specified places as the place of occurrence of the external cause; Z87.891 Personal history of nicotine dependence